=== PATIENT | female | born 1985 | race Caucasian/White ===

== ENCOUNTER → 2024-01-24 10:39 | Outpatient (REF) | payer OTHER, SELFPAY ==
[2024-01-24 12:13] LABS: Rubella Positive
[2024-01-26 07:39] LABS: Quantiferon Mitogen minus NIL 9.97 IU/mL; Quantiferon NIL 0.03 IU/mL; Quantiferon Plus TB1 minus NIL 0.01 IU/mL (<=0.34); Quantiferon TB Gold Plus Negative (Negative)
[2024-01-26 14:36] LABS: Mumps Virus IgG Positive; Rubeola (Measles) IgG Positive; Varicella Zoster IgG (VZV) Positive
== END ==
LOC: OHS 10:39
PROVIDERS: ATTENDING PHYSICIAN Nurse Practitioner Family
DX: Z23 Encounter for immunization (principal)
CPT/HCPCS: 36415; 86480; 86735; 86762; 86765; 86787

== ENCOUNTER 2024-08-07 11:48 | Emergency (ER) | payer BC, SELFPAY ==
[2024-08-07 11:58] VITALS: BP 232/156
[2024-08-07 12:18] LABS: % Basophils 0.3 % (0-2); % Eosinophils 0.5 % (0-6); % Immature Granulocytes 0.3 % (0-0.5); % Lymphocytes 21.7 % (20.5-51.1); % Neutrophils 70.2 % (42.2-75.2); Absolute Eosinophils 0.1 10^3/uL (0-0.7); Absolute Lymphocytes 2.8 10^3/uL (1.2-3.4); Absolute Monocytes 0.9 10^3/uL (0.1-0.6); Hematocrit 43.1 % (37.0-47.0); Mean Corp Hgb Conc. 32.5 g/dL (33.0-37.0); Mean Corpuscular Hgb 27.8 pg (27.0-31.0); Mean Corpuscular Volume 85.7 fL (81.0-99.0); Mean Platelet Volume 8.5 fL (7.4-10.4); Nucleated Red Blood Cells % 0 %; Platelet Count 363 10^3/uL (130-400); Red Blood Cell Count 5.03 10^6/uL (4.20-5.40); Red Cell Dist. Width 12.9 % (11.5-14.5); White Blood Cell Count 12.9 10^3/uL (4.8-10.8)
[2024-08-07 12:38] LABS: ALT (SGPT) 33 U/L (0-35); AST (SGOT) 21 U/L (14-36); Albumin 4.4 g/dl (3.5-5.0); Alkaline Phosphatase 84 U/L (38-126); Blood Urea Nitrogen 9 mg/dl (7-17); Calcium 9.7 mg/dl (8.4-10.2); Carbon Dioxide 25 mmol/L (22-30); Chloride 104 mmol/L (98-107); Glucose 96 mg/dl (70-99); Potassium 4.2 mmol/L (3.5-5.1); Sodium 137 mmol/L (135-145); Total Bilirubin 0.4 mg/dl (0.2-1.3); eGFR > 60.00
[2024-08-07 14:00] VITALS: BP 202/112
[2024-08-07 15:43] VITALS: BMI 49.9
[2024-08-07 16:00] VITALS: BP 201/112
[2024-08-07] MEDS: CARDIZEM 60 MG PO (16:03)
[2024-08-07 16:35] VITALS: BP 201/107
--- NOTE | 2024-08-07 18:15 | ED.GENMED ---
History of Present Illness
General
Chief Complaint: Blood Pressure Problem
Source: patient
Exam Limitations: none
Time Seen by Provider: 08/07/24 15:07
Nursing documentation reviewed up to this point in time: agreed with
History of Present Illness
History of Present Illness:
39-year-old female presenting to the emergency department with concerns of elevated blood pressure. She feels anxious denies specific chest pain shortness of breath nausea vomiting numbness weakness changes in bowel movements. She stopped her
nifedipine a few months ago has not been checking her blood pressures.
Review of Systems
Review of Systems
Allergies reviewed?: Yes
All Other Systems: ROS reviewed and negative except as documented in HPI and ROS
Phy Exam
Physical Exam
Physical Exam:
GENERAL: Alert , in no apparent distress
EYE: pupils equal and reactive
NECK: Supple, no significant adenopathy.
ENT: o/p clr, mmm.
CARDIAC: Regular rate and rhythm .
LUNGS: Clear breath sounds bilaterally, no acute respiratory distress, no wheezes/rales/rhonchi
ABDOMEN: Soft, without focal tenderness, no r/g, no cvat
NEUROLOGICAL: Alert and oriented, no focal neuro deficits
SKIN: Warm and dry, skin intact.
MUSCULOSKELETAL: No edema, well perfused.
PSYCH: Normal and appropriate interaction.
Course
Orders/Labs/Results
Orders:
Orders
08/07/24 12:10
CMP [Comprehensive Metabolic Panel] Urgent
Complete Blood Count/With Diff Urgent
08/07/24 15:54
EKG [Electrocardiogram (*1)] Urgent
Reason for Study: Hypertension, Benign
EKG [Electrocardiogram (*1)] Urgent
Reason for Study: Fatigue / Weakness
EKG- Treatment ONCE
Diltiazem [Cardizem] 60 mg PO NOW STA
08/07/24 16:06
Ondansetron Orally Disint [Zofran Odt (Orally Disintegrating)] 4 mg PO NOW STA
Abnormal Lab Results
08/07/24
12:10
WBC 12.9 H 10^3/uL
(4.8-10.8)
MCHC 32.5 L g/dL
(33.0-37.0)
Absolute Neuts (auto) 9.0 H 10^3/uL
(1.4-6.5)
Absolute Monos (auto) 0.9 H 10^3/uL
(0.1-0.6)
08/07/24 12:10
08/07/24 12:10
Vital Signs
Initial and Last Documented VS:
Initial Vital Signs
Pulse Resp BP Pulse Ox
76 18 232/156 98
08/07/24 11:58 08/07/24 11:58 08/07/24 11:58 08/07/24 11:58
Last Documented Vital Signs
Temp Pulse Resp BP Pulse Ox
98.0 F 97 11 201/107 97
08/07/24 14:00 08/07/24 16:03 08/07/24 15:45 08/07/24 16:35 08/07/24 15:45
MDM/Problems Addressed
MDM/Problems Addressed:
39-year-old female presenting to the emergency department concerns of elevated blood pressure. On arrival it was 232/156. Patient claims she was very anxious at the time as well. She was given dose of diltiazem with improving blood pressure in
the 1. No chest pain shortness breath or any symptoms consistent with hypertensive emergency. Her blood pressure is elevated however she is prescribed blood pressure medications. She was advised to start medications over the next few days and
follow-up very closely and to monitor at home. Return precautions were given.
*Critical Care Note
Total Time (30-74mins, 75-104mins- exclusive of procedures): Not Applicable
ED Attending Note
-
Portions of this chart may have been created with voice recognition software.� Occasional wrong word or��sound alike� substitutions may have occurred due to the inherent limitations of voice recognition software.
Discharge Plan
Departure
Patient Disposition: Home (Routine Discharge)
Date of Disposition: 08/07/24
Time of Disposition: 18:16
Patient with high blood pressure during this ER visit?: Yes
Condition: Good
Covid-19: Not Applicable
Discharge Problem:
Elevated blood pressure reading
Instructions: High Blood Pressure (DC)
Referrals:
Osmany Han MD [Family Provider] -
Activity Restrictions/Additional Instructions:
You came to the emergency department today with concerns of elevated blood pressure. Please take the prescribed medications and follow-up closely with your primary care doctor. Return for any worsening, new or concerning symptoms.
Interventions
Interventions:
*Risk Screen - Suicide Last Done: 08/07/24 11:58
*Neglect/Abuse Screening Last Done: 08/07/24 11:58
ED- Fall Risk Assessment Last Done: 08/07/24 15:43
*ED COVID-19 Vaccine History Last Done: 08/07/24 11:58
ED- Cardiac Assessment Last Done: 08/07/24 15:43
ED- Neurological Assessment Last Done: 08/07/24 15:43
ED- Pulmonary Assessment Last Done: 08/07/24 15:43
Discharge Date and Time
Print Language: CITIZEN OF [place]
== END 2024-08-07 18:26 | disposition home or self-care (01) ==
LOC: EMR 11:48
PROVIDERS: Student in an Organized Health Care Education/Training Program; EMERGENCY PHYSICIAN Emergency Medicine; FAMILY PHYSICIAN Family Medicine
DX: R03.0 Elevated blood-pressure reading, without diagnosis of hypertension (principal); F41.9 Anxiety disorder, unspecified; Z91.148 Patient's other noncompliance with medication regimen for other reason
CPT/HCPCS: 99283; 80053; 85025; 93005

== ENCOUNTER → 2024-08-14 10:47 | Outpatient (REF) | payer BC, SELFPAY ==
[2024-08-14 12:12] LABS: HDL Cholesterol 45 mg/dl; LDL Cholesterol, Calculated 107 mg/dl; Total Cholesterol 183 mg/dl (50-199); Triglyceride 155 mg/dl (10-149); Very Low Density Lipoprotein 31 mg/dl (0-30)
[2024-08-14 12:56] LABS: TSH Reflex To Free T4 1.71 uIU/ml (0.47-4.68)
[2024-08-17 07:56] LABS: Aldosterone, Serum 16.8 ng/dL; Aldosterone/Renin Activ Ratio 4.5 ratio (<=25.0); Renin Activity Results 3.7 ng/mL/hr
== END ==
LOC: REG 10:47
PROVIDERS: ATTENDING PHYSICIAN Internal Medicine Interventional Cardiology; FAMILY PHYSICIAN Family Medicine
DX: I10 Essential (primary) hypertension (principal)
CPT/HCPCS: 36415; 80061; 82088; 84244; 84443